=== PATIENT | female | born 1995 | race African-American/Black ===

== ENCOUNTER 2019-05-04 10:47 | Inpatient (IN) | payer MEDICAID ==
[~2019-05-04] VITALS: Ht 160 cm; Wt 49.9 kg
[2019-05-04 15:59] LABS: BASOPHILS % 0.5 % (0.0-2.0); EOSINOPHILS % 0.2 % (0.0-5.0); HEMATOCRIT. 36.5 % (36.0-48.0); HEMOGLOBIN. 12.6 g/dL (12.0-16.0); LYMPHOCYTES % 14.4 % (20.0-50.0); MEAN CORPUSCULAR HEMOGLOBIN 30.6 pg (28.0-32.0); MEAN CORPUSCULAR VOLUME 88.9 fL (81.0-99.0); MEAN PLATELET VOLUME 7.8 fl (7.4-10.4); MONOCYTES % 5.5 % (2.0-8.0); NEUTROPHILS % 79.4 % (40.0-76.0); PLATELET 213 x1000/uL (130-400); RED BLOOD CELL COUNT 4.11 mill/uL (4.2-5.4)
[2019-05-04 16:06] LABS: CHLORIDE 109 mEq/L (98-107)
[2019-05-04 16:09] LABS: CLARITY URINE CLEAR (CLEAR); COLOR URINE YELLOW (YELLOW); KETONES URINE 1+ (NEGATIVE); LEUKOCYTE ESTERASE URINE NEGATIVE (NEGATIVE); NITRITE URINE NEGATIVE (NEGATIVE); OCCULT BLOOD URINE 2+ (NEGATIVE); PROTEIN URINE NEGATIVE (NEGATIVE); SPECIFIC GRAVITY URINE 1.036 (1.005-1.030); UROBILINOGEN URINE 0.2 E.U./dL (0.2-1.0)
[2019-05-04 16:17] LABS: B-HCG QUANTITATIVE 489 mIU/mL (<3)
[2019-05-04] MEDS ORDERED: MIDAZOLAM HCL 2 MG/2 ML VIAL ONE (20:54)
[2019-05-04] MEDS ORDERED: ROCURONIUM BROMIDE 10MG/ML VIAL 5ML IV ONE (20:54)
[2019-05-04] MEDS ORDERED: LIDOCAINE HCL/PF 1% 10 MG/ML 5ML VIAL ONE (20:54)
[2019-05-04] MEDS ORDERED: FENTANYL CITRATE/PF 50MCG/ML 2ML VIAL ONE ×2 (20:54→21:58)
[2019-05-04] MEDS ORDERED: PROPOFOL 200MG/20ML VIAL IV ONE (20:54)
[2019-05-04] MEDS ORDERED: SUCCINYLCHOLINE CHLORIDE 200MG/10ML IV ONE (20:55)
[2019-05-04] MEDS ORDERED: FENTANYL CITRATE/PF 50MCG/ML 2ML VIAL IV PRN (21:15)
[2019-05-04] MEDS ORDERED: ONDANSETRON HCL 4MG/2ML INJ IV PRN (21:15)
[2019-05-04] MEDS ORDERED: ESMOLOL HCL 10MG/ML 10ML VIAL IV ONE ×2 (21:48→22:00)
[2019-05-04] MEDS ORDERED: ONDANSETRON HCL 4MG/2ML INJ ONE (21:53)
[2019-05-04] MEDS ORDERED: DEXAMETHASONE 4MG/ML 1ML VIAL ONE (21:53)
[2019-05-04] MEDS ORDERED: BUPIVACAINE HCL 0.5% (5MG/ML) 50ML ONE (21:55)
[2019-05-04] MEDS ORDERED: KETOROLAC 30MG/ML VIAL ONE (22:01)
[2019-05-04] MEDS ORDERED: CEFAZOLIN SODIUM 1000MG/VIAL ONE (22:10)
[2019-05-04] MEDS ORDERED: GLYCOPYRROLATE 0.2 MG/ML 2ML VIAL ONE (22:14)
[2019-05-04] MEDS ORDERED: NEOSTIGMINE METHYLSULFATE 1MG/ML 10 ML VIAL ONE (22:14)
[2019-05-04] MEDS: HYDROMORPHONE HCL/PF 2MG/ML CPJ IV PRN ×4 (23:03→23:42)
[2019-05-04] MEDS ORDERED: RHO(D) IMMUNE GLOBULIN 300 MCG/SYR IM ONE (23:15)
[2019-05-05] VITALS: BP 106/65
[2019-05-05] MEDS: MORPHINE SULFATE 2 MG/ML CPJ (NOT FOR IM USE) IV PRN ×3 (02:09→22:16)
[2019-05-05 04:00] VITALS: BP 88/56
[2019-05-05] MEDS ORDERED: SODIUM CHLORIDE 0.9% 500 ML IV SCH (06:15)
[2019-05-05 06:51] LABS: HEMATOCRIT. 34.7 % (36.0-48.0); HEMOGLOBIN. 11.8 g/dL (12.0-16.0); MEAN CORPUSCULAR HEMOGLOBIN 30.5 pg (28.0-32.0); MEAN CORPUSCULAR VOLUME 89.7 fL (81.0-99.0); MEAN PLATELET VOLUME 8.6 fl (7.4-10.4); PLATELET 213 x1000/uL (130-400); RED BLOOD CELL COUNT 3.87 mill/uL (4.2-5.4); RED CELL DISTRIBUTION WIDTH 12.6 % (11.6-14.6)
[2019-05-05] MEDS: SODIUM CHLORIDE 0.9% 1,000 ML IV SCH ×3 (07:00→23:00)
[2019-05-05 08:00] VITALS: BP 102/68
[2019-05-05 11:16] LABS: PLATELET ESTIMATE NORMAL
[2019-05-05 12:00] VITALS: BP 104/69
[2019-05-05 16:00] VITALS: BP 99/68
[2019-05-05] MEDS: IBUPROFEN 800MG TABLET PO PRN (17:49)
[2019-05-05 20:00] VITALS: BP 114/83
[2019-05-06] VITALS: BP 106/88
[2019-05-06 04:00] VITALS: BP 105/76
[2019-05-06] MEDS: SODIUM CHLORIDE 0.9% 1,000 ML IV SCH ×3 (04:09→23:00)
[2019-05-06] MEDS: MORPHINE SULFATE 2 MG/ML CPJ (NOT FOR IM USE) IV PRN ×2 (04:13→20:52)
[2019-05-06 08:00] VITALS: BP 105/67
[2019-05-06 11:43] VITALS: BP 109/73
[2019-05-06] MEDS: IBUPROFEN 800MG TABLET PO PRN (15:35)
[2019-05-06 15:42] VITALS: BP 110/71
[2019-05-06 20:00] VITALS: BP 133/91
[2019-05-07] VITALS: BP 109/72
[2019-05-07 04:00] VITALS: BP 101/63
[2019-05-07 04:10] LABS: CHLAMYDIA TRACHOMATIS NAA Negative (Negative); NEISSERIA GONORRHOEAE NAA Negative (Negative)
[2019-05-07] MEDS ORDERED: FERR325T6 MT (06:22)
[2019-05-07] MEDS ORDERED: IBUP-2030 MT (06:22)
[2019-05-07] MEDS ORDERED: MULT1TAB67 MT (06:22)
[2019-05-07] MEDS: MORPHINE SULFATE 2 MG/ML CPJ (NOT FOR IM USE) IV PRN (06:57)
[2019-05-07] MEDS: SODIUM CHLORIDE 0.9% 1,000 ML IV SCH (07:00)
[2019-05-07 07:05] VITALS: BP 101/63
[2019-05-07 08:00] VITALS: BP 105/68
== END 2019-05-07 08:35 | disposition home or self-care (01) | DRG 545 ==
LOC: ER 10:47 → 6EST 05-05 00:20
PROVIDERS: ADMIT Obstetrics & Gynecology; ATTEND Obstetrics & Gynecology
PROC: 10D27ZZ Extraction of Products of Conception, Ectopic, Via Natural or Artificial Opening (ICD-10-PCS; principal; 2019-05-05)
PROC: 0WJJ4ZZ Inspection of Pelvic Cavity, Percutaneous Endoscopic Approach (ICD-10-PCS; 2019-05-05)
PROC: 0W9G0ZZ Drainage of Peritoneal Cavity, Open Approach (ICD-10-PCS; 2019-05-05)
DX: O00.101 Right tubal pregnancy without intrauterine pregnancy (principal); K66.1 Hemoperitoneum
CPT/HCPCS: 36415; 76801; 80053; 81003; 84702; 85025; 86850; 86900; 87210; 87491; 87591; 88305; 96374; 99285; J0330; J0690; J1100; J1170; J1885; J2250; J2270; J2405; J2704; J2710; J3010; J3490; J7030; J7042